=== PATIENT | female | born 1965 | race Caucasian/White ===

== ENCOUNTER 2024-04-05 04:27 | Day surgery (SDC) | payer BC ==
[2024-03-26 10:27] VITALS: BMI 22.6
[2024-04-05 08:46] VITALS: RESP 18; TEMP 98.1
[2024-04-05 09:16] VITALS: BP 114/58; PULSE 67
== END 2024-04-05 09:32 | disposition home or self-care (01) ==
LOC: JASU-ENDO 04:27
PROVIDERS: ATTEND Internal Medicine Gastroenterology
PROC: 0DBP8ZX Excision of Rectum, Via Natural or Artificial Opening Endoscopic, Diagnostic (ICD-10-PCS; principal; 2024-04-05 08:00)
DX: Z12.11 Encounter for screening for malignant neoplasm of colon (principal); D12.8 Benign neoplasm of rectum; K64.8 Other hemorrhoids
CPT/HCPCS: 88305-TC